=== PATIENT | female | born 1970 | race Caucasian/White ===

== ENCOUNTER → 2024-09-06 06:52 | Outpatient (REF) | payer OTHER, SELFPAY | LOC: RCS 06:52 | PROVIDERS: ATTENDING PHYSICIAN Internal Medicine Cardiovascular Disease; FAMILY PHYSICIAN Family Medicine | DX: I10 Essential (primary) hypertension (principal); I25.118 Atherosclerotic heart disease of native coronary artery with other forms of angina pectoris; R06.09 Other forms of dyspnea; R07.89 Other chest pain | CPT/HCPCS: 93306 ==

== ENCOUNTER → 2024-09-13 06:52 | Outpatient (REF) | payer OTHER, SELFPAY | LOC: RCS 06:52 | PROVIDERS: ATTENDING PHYSICIAN Internal Medicine Cardiovascular Disease; FAMILY PHYSICIAN Family Medicine | DX: I10 Essential (primary) hypertension (principal); I25.118 Atherosclerotic heart disease of native coronary artery with other forms of angina pectoris; R06.09 Other forms of dyspnea; R07.89 Other chest pain | CPT/HCPCS: 78452; 93017; A9500 ==